=== PATIENT | female | born 1965 | race Caucasian/White ===

== ENCOUNTER 2017-04-08 15:10 | Emergency (ER) | payer BC ==
[2017-04-08 15:38] LABS: HEMATOCRIT 37.3 % (35.0-47.0); HEMOGLOBIN 12.2 gm/dl (11.6-16.0); MEAN CELL VOLUME 90.1 fl (81-97); MEAN CORPUSCULAR HEMOGLOBIN 29.5 pg (27-33); MEAN CORPUSCULAR HGB CONC 32.7 g/dl (32-36); MEAN PLATELET VOLUME 9.3 fl (7.4-10.4); PLATELET COUNT 722 K/uL (130-400); RED BLOOD COUNT 4.14 M/uL (3.80-5.40); RED CELL DISTRIBUTION WIDTH 13.6 % (11.5-14.5)
[2017-04-08 15:43] LABS: WHITE BLOOD COUNT W/O DIFF 20.5 K/uL (4.2-12.2)
--- NOTE | 2017-04-08 15:44 | Emergency Department Record ---
History of Present Illness - General Chief Complaint: Tremor Stated Complaint: CHANGE IN [facility] Source: Patient Mode of Arrival: Wheelchair Limitations: No limitations - History of Present Illness Initial comments: 51 yo female presents for evaluation of confusion following a change in her diabetic medications. Patient denies recent illness, fevers, chills, or cough symptoms. Patient does report generalized weakness symptoms. Patient's sister brought her to the ED for evaluation. Onset/Timin -: Week(s) Improves with: None Worsens with: None Associated Symptoms: Denies other symptoms - Linnea Coma Scale Eye Response: (4) Open spontaneously Motor Response: (6) Obeys commands Verbal Response: (5) Oriented Linnea Total: 15 - Related Data Home Medications Medication Instructions Recorded Confirmed Last Taken Amlodipine Besylate [Amlodipine 2.5 mg PO DAILY 04/22/15 04/08/17 03/25/17 Besylate] Atenolol [Atenolol] 50 mg PO DAILY 04/22/15 04/22/15 03/25/17 Atorvastatin Calcium 10 mg PO DAILY 04/22/15 04/22/15 03/25/17 Bupropion HCl [Bupropion HCl Sr] 100 tab PO BID 04/22/15 04/22/15 03/25/17 Butalb/Acetaminophen/Caffeine 1 tab PO Q6H PRN 04/22/15 04/22/15 03/25/17 [Ylkpri-Fbrznevt-Apmi 50-325-40] Citalopram Hydrobromide 20 tab PO DAILY 04/22/15 04/22/15 03/25/17 [Citalopram HBr] Gabapentin [Gabapentin] 100 cap PO TID 04/22/15 04/22/15 03/25/17 Lisinopril [Zestril] 20 mg PO DAILY 04/22/15 04/22/15 03/25/17 Metformin HCl [Glucophage Ir] 04/22/15 04/22/15 03/25/17 Allergies Allergy/AdvReac Type Severity Reaction Status Date / Time No Known Drug Allergies Allergy Verified 04/08/17 15:18 Travel Screening - Travel/Exposure Within Last 30 Days Have you traveled within the last 30 days?: No - Travel/Exposure Within Last Year Have you traveled outside the [place] in the last year?: No - Additonal Travel Details Have you been exposed to anyone with a communicable illness?: No - Travel Symptoms Symptom Screening: None Review of Systems Constitutional: Denies: Chills, Fever, Malaise, Night sweats Eyes: Denies: Eye discharge, Eye pain ENT: Denies: Congestion, Ear pain, Epistaxis Respiratory: Denies: Cough, Dyspnea Cardiovascular: Denies: Chest pain, Dyspnea on exertion Endocrine: Denies: Fatigue, Heat or cold intolerance Gastrointestinal: Denies: Abdominal pain, Vomiting Genitourinary: Denies: Incontinence, Retention Musculoskeletal: Denies: Arthralgia, Back pain Skin: Denies: Bruising, Change in color Neurological: Reports: Confusion. Denies: Abnormal gait, Headache, Seizure Psychiatric: Denies: Anxiety Hematological/Lymphatic: Denies: Anemia, Blood Clots Past Medical History - SOCIAL HISTORY Smoking Status: Former smoker Alcohol Use: Rare Drug Use: None - RESPIRATORY Hx Respiratory Disorders: Yes Hx Asthma: Yes Hx Pneumonia: Yes Hx Sleep Apnea: Yes - CARDIOVASCULAR Hx Cardio Disorders: Yes Hx Hypertension: Yes Comment:: high cholesterol - NEURO Hx Neuro Disorders: Yes Hx Headaches: Yes - GI Hx GI Disorders: No - Hx Genitourinary Disorders: No - ENDOCRINE Hx Endocrine Disorders: Yes Hx Diabetes: Yes - MUSCULOSKELETAL Hx Musculoskeletal Disorders: No - PSYCH Hx Psych Problems: Yes Hx Depression: Yes - HEMATOLOGY/ONCOLOGY Hx Hematology/Oncology Disorders: No Family Medical History Any Significant Family History?: Yes Hx Cancer: Grandparents Hx Diabetes: Father Hx Heart Disease: Grandparents Hx HTN: Father, Mother Physical Exam - General General Appearance: Alert, Oriented x3, Cooperative Limitations: No limitations - Head Head exam: Atraumatic, Normocephalic, Normal inspection Head exam detail: negative: Abrasion, Contusion, Saez's sign, General tenderness, Hematoma, Laceration - Eye Eye exam: Normal appearance. negative: Conjunctival injection, Periorbital swelling, Periorbital tenderness, Scleral icterus - ENT ENT exam: Mucous membranes dry Ear exam: negative: Auricular hematoma, Auricular trauma Nasal Exam: negative: Active bleeding, Discharge, Dried blood, Foreign body Mouth exam: negative: Drooling, Laceration, Muffled voice, Tongue elevation - Neck Neck exam: Normal inspection. negative: Meningismus, Tenderness - Respiratory Respiratory exam: Normal lung sounds bilaterally, Respiratory distress, Other ( tachypnic on examination). negative: Rales, Rhonchi, Stridor - Cardiovascular Cardiovascular Exam: Normal rhythm, Normal heart sounds, Tachycardia - GI/Abdominal GI/Abdominal exam: Soft. negative: Rebound, Rigid, Tenderness - Rectal Rectal exam: Deferred - exam: Deferred - Extremities Extremities exam: negative: Calf tenderness, Pedal edema, Tenderness - Back Back exam: Denies: CVA tenderness (R), CVA tenderness (L) - Neurological Neurological exam: Alert, Oriented X3. negative: Motor sensory deficit - Psychiatric Psychiatric exam: Normal affect, Normal mood - Skin Skin exam: Normal color. negative: Abrasion Type of lesion: negative: abrasion Course Vital Signs 04/08/17 15:32 Temperature 98.9 F Pulse Rate 123 H Blood Pressure 151/95 - Reevaluation(s) Reevaluation #1: 04/08/17 16:13 Labs reviewed: WBC 20.5 Na-118 CO2-18 Glucose 1000 Lactic acid: 5.3 Ketones: negative. Labs reviewed, 1 L bolus is infusing, will initiate 2nd Liter via second line and transfer to ICU. Reevaluation #2: 04/08/17 16:20 [facility] 1-call contacted for ICU transfer. Patient and family updated on all results and the plan of care at this time. Reevaluation #3: 04/08/17 16:27 Case was discussed with Dr. Stewart, will accept transfer to ICU. Will continue IVF resuscitation and hold Insulin at this time. Reevaluation #4: 04/08/17 17:34 3rd Liter NS ordered to continue IVF resusitation. Awaiting ICU bed assignment from [facility]. Pulse improved to 114, RR down to 20. Will continue to monitor. 04/08/17 17:35 Reevaluation #5: 04/08/17 17:50 4th Liter NS initiated in ED. Bed has been assigned, EMS contacted for transport. Repeat BMP ordered to re-evaluate the patient's electrolyte status. 04/08/17 18:04 Rocephin ordered for probable UTI. Repeat BMP reviewed, Glucose improved to 694 from 1000, Na improved from 118 to 125, CO2 improved to 21 from 18. Labs overall are improved from initial laboratory results. Awaiting transfer. 04/09/17 06:59 Medical Decision Making - Lab Data Result diagrams: 04/08/17 15:30 04/08/17 18:57 Critical Care Time Critical Care Time: Yes Total Critical Care Time: 120 Critical Care Time: Diagnosis and treatment of hyperosmolar, hyperglycemic state, multiple electrolyte abnormalities, IVCF resuscitation, administration of antibiotics for UTI, redraw of electrolytes for reassessment following 4 L NS, and arrangement for transfer to ICU for further management. Disposition Disposition: Transfer Clinical Impression: Hyperglycemic hyperosmolar nonketotic coma, Lactic acidosis Disposition: Acute Care Hospital Transfer Transfer To: [facility] Reason For Transfer: ICU Accepting Physician: Pat Time Discussed w/Accepting Physician: 16:18 Condition: (3) Guarded Forms: Patient Portal Access Time of Disposition: 16:20
[2017-04-08] MEDS ORDERED: 0.9 % SODIUM CHLORIDE 1000ML 1,000 ML IV SCH ×4 (15:45→18:00)
[2017-04-08 15:48] LABS: PLATELET ESTIMATE NORMAL (NORMAL)
[2017-04-08 15:52] LABS: LACTIC ACID 5.3 mmol/L (0.7-2.1)
[2017-04-08 16:06] LABS: BLOOD UREA NITROGEN 15 mg/dL (7-17); CREATININE 0.8 mg/dL (0.52-1.04); EST GLOMERULAR FILTRATION RATE > 60 ml/min; GLUCOSE,RANDOM 1000 mg/dL (70-110)
[2017-04-08 16:07] LABS: ALB/GLOB RATIO 0.8 (1.1-1.8); ALBUMIN 3.1 gm/dL (3.5-5.0); TOTAL PROTEIN 6.8 gm/dL (6.3-8.2)
[2017-04-08 16:08] LABS: ALKALINE PHOSPHATASE 192 U/L (38-126); ALT/SGPT 33 U/L (9-52); AST/SGOT 21 U/L (14-36)
[2017-04-08 17:56] LABS: URINE APPEARANCE SL CLOUDY; URINE BILIRUBIN NEGATIVE (NEGATIVE); URINE BLOOD MODERATE (NEGATIVE); URINE COLOR YELLOW; URINE KETONE NEGATIVE (NEGATIVE); URINE LEUKOCYTE ESTERASE SMALL (NEGATIVE); URINE NITRITE NEGATIVE (NEGATIVE); URINE PROTEIN NEGATIVE (NEGATIVE)
[2017-04-08 18:02] LABS: URINE GLUCOSE (UA) >=1000 mg/dL (NEGATIVE)
[2017-04-08 18:03] LABS: URINE BACTERIA 1+; URINE EPITHELIAL CELLS NONE SEEN (FEW)
[2017-04-08] MEDS ORDERED: CEFTRIAXONE SODIUM 1 GM in 0.9 % SODIUM CHLORIDE 100ML 100 ML IVPB ONE (19:03)
[2017-04-08 19:15] LABS: ANION GAP 9.6 (7-16); BLOOD UREA NITROGEN 14 mg/dL (7-17); CARBON DIOXIDE 21.4 mmol/L (22-30); CREATININE 0.7 mg/dL (0.52-1.04); EST GLOMERULAR FILTRATION RATE > 60 ml/min
[2017-04-08 19:23] LABS: GLUCOSE,RANDOM 694 mg/dL (70-110)
--- NOTE | 2017-04-10 14:17 | RADIOLOGY REPORT ---
DATE: 04/08/2017 at 16:05. EXAM: CHEST, TWO VIEWS. HISTORY: Not feeling well. Shakiness. TECHNIQUE: Upright AP and lateral views of the chest. COMPARISON: Two-view chest radiographic examination dated 04/22/2015. FINDINGS: The heart is not enlarged and the pulmonary vasculature is nondilated. No confluent air space opacity is seen; nor is there costophrenic angle blunting or pneumothorax. On the lateral view, there is possible linear scarring at the hilar level versus normal vasculature. This is stable. There are degenerative endplate changes scattered within the visualized spine. IMPRESSION: NO RADIOGRAPHIC EVIDENCE OF ACUTE CARDIOPULMONARY DISEASE. JOB NUMBER: [id number] MTDD
== END 2017-04-08 19:16 | disposition short-term general hospital (02) ==
LOC: ER 15:10
DX: E11.01 Type 2 diabetes mellitus with hyperosmolarity with coma (principal); R41.0 Disorientation, unspecified; R06.00 Dyspnea, unspecified; R82.99 Other abnormal findings in urine; I10 Essential (primary) hypertension; Z87.891 Personal history of nicotine dependence; Z79.84 Long term (current) use of oral hypoglycemic drugs
CPT/HCPCS: 36416; 71020; 80048; 80053; 81001; 82009; 82800; 82948; 83605; 83690; 85027; 96361; 96374; 99291; 99292; J7030

== ENCOUNTER 2018-01-24 07:56 | Day surgery (SDC) | payer BC ==
[2018-01-24] MEDS ORDERED: LIDOCAINE 2% MDV (20MG/ML) 20ML VIAL IV ONE (07:57)
[2018-01-24] MEDS ORDERED: PROPOFOL 10 MG/ML VIAL IV ONE (07:57)
--- NOTE | 2018-01-24 13:50 | Operative Note ---
DATE OF SURGERY: 01/24/2018 OPERATION: 1. Failed COLONOSCOPY due to poor colon preparation. 2. FLEXIBLE SIGMOIDOSCOPY with electrocautery snare polypectomy. INDICATION: Colorectal cancer screening. ANESTHESIA: Intravenous sedation was administered by the department of anesthesiology and included Diprivan titrated to effect. PROCEDURE: Following informed consent from this alert individual including a discussion of the risks and benefits of the procedure and an opportunity for the patient to ask questions, the patient was in the left lateral decubitus position. A digital rectal examination was performed. No abnormalities were noted. Following this, the Olympus [id number] video colonoscope was inserted into the rectum without resistance. The rectal mucosa had a normal appearance with normal-appearing mucosa; however, there was some retained stool noted. Washing and suctioning was employed vigorously with failed visualization. The colonoscope was then advanced farther up into the sigmoid colon where diverticulosis was rather extensive. There was also a fair amount of retained liquid and solid stool noted precluding advancement further into the colon. For this reason, the colonoscope was then slowly withdrawn. Within the distal rectum, there was a polyp noted measuring 7-8 mm in size. It appeared adenomatous in type and was friable. It was removed with electrocautery snare polypectomy with a white eschar noted and no bleeding. Retroflexion in the rectum was unremarkable except for retained stool. The endoscope was then withdrawn. The patient tolerated the procedure well and was returned to the recovery area in stable condition. IMPRESSION: 1. Failed colonoscopy secondary to poor colon preparation with retained liquid and solid stool. 2. Sigmoid diverticulosis. 3. A 7-8 mm rectal polyp removed with electrocautery snare polypectomy. RECOMMENDATIONS: The patient was advised to have a repeat attempt at colonoscopy with additional prep (2-day prep). Further recommendations will be forthcoming pending pathology as well. Followup will also be with Dr. Gonzales. As always, thank you for allowing me to participate in the care of your patient. CC: CARMEN GONZALES MD, FACP [facility]
== END 2018-01-24 10:24 | disposition home or self-care (01) ==
LOC: HOP 07:56
PROVIDERS: ATTEND Internal Medicine Gastroenterology
DX: Z12.11 Encounter for screening for malignant neoplasm of colon (principal); Z53.09 Procedure and treatment not carried out because of other contraindication; K62.1 Rectal polyp; K57.30 Diverticulosis of large intestine without perforation or abscess without bleeding; E11.9 Type 2 diabetes mellitus without complications; Z79.4 Long term (current) use of insulin; I10 Essential (primary) hypertension; E78.00 Pure hypercholesterolemia, unspecified; G62.9 Polyneuropathy, unspecified

== ENCOUNTER 2018-03-21 07:57 | Day surgery (SDC) | payer BC ==
[2018-03-21] MEDS ORDERED: PROPOFOL 10 MG/ML VIAL IV ONE (07:58)
[2018-03-21] MEDS ORDERED: LIDOCAINE 2% MDV (20MG/ML) 20ML VIAL IV ONE (07:58)
--- NOTE | 2018-03-21 13:20 | Operative Note ---
DATE OF SURGERY: 03/21/2018 OPERATION: COLONOSCOPY to the cecum with electrocautery snare polypectomy of a rectal polyp and partial polypectomy of an ileocecal valve polyp. ANESTHESIA: Intravenous sedation was administered by the department of anesthesiology and included Diprivan titrated to effect. HISTORY: The patient is a pleasant 52-year-old female who presented earlier this year (2 months ago) for colonoscopy. Unfortunately, at that time her colon preparation was not adequate. For this reason she returns for a repeat examination after a 2-day preparation and citrate of magnesium. PROCEDURE: Following informed consent from this alert individual including a discussion of the risks and benefits of the procedure and an opportunity for the patient to ask questions, the patient was in the left lateral decubitus position. A digital rectal examination was performed. No abnormalities were noted. Following this, the Olympus [id number] video colonoscope was inserted into the rectum without resistance. The distal rectum had a normal appearance with normal folds and distensibility. In the mid rectum, there was a large 2 to 2.5 cm polyp noted which was initially traversed. The colonoscope was then further advanced up through the bowel to the level of the cecum. Extensive diverticulosis was noted in the left colon. The colon preparation was fair. Washing and suctioning was employed vigorously throughout to facilitate improved visualization although there remained some retained stool noted. The cecum was defined by noting the appendiceal orifice, cecal base, and ileocecal valve. There was a small 6-7 mm polyp noted at the cecal base which was not removed. There was a large 3 cm polyp along the ileocecal valve. Initially tried to remove the polyp with electrocautery snare polypectomy; however, due to its size and location, complete removal safely did not seem feasible. From this point, the colonoscope was then withdrawn. No additional changes were appreciated except for a small lipoma in the ascending colon. Again extensive diverticulosis was noted in the left colon. When the rectum was reached, the polyp was re-visualized and snared in the usual fashion. Utilizing electrocautery snare, the polyp was removed. It was semi-pedunculated with a narrowed base. A white eschar was noted. There was no bleeding. Retroflexion in the rectum was endoscopically unremarkable. The polyp was collected on the tip of the colonoscope and placed in the specimen trap. The patient tolerated the procedure well and was returned to the recovery area in stable condition. IMPRESSION: 1. Large 3 cm sessile polyp involving ileocecal valve which was only partially removed at this time. 2. A 7 mm semi-pedunculated polyp at the base of the cecum which was not removed. 3. Large 2 to 2.5 cm mid rectal polyp removed with electrocautery snare polypectomy. 4. Extensive left colonic diverticulosis. 5. Fair preparation. RECOMMENDATIONS: At this point, I will consult Surgery for resection of the above-mentioned polyp at the ileocecal valve. Would also recommend a recheck colonoscopy with 2-day prep in 1 year's time for surveillance. Followup will also be with Dr. Gonzales. Further recommendations may be forthcoming pending those results. As always, thank you for allowing me to participate in the care of your patient. CC: CARMEN GONZALES MD, FACP Anjel Crain, DO [facility]
== END 2018-03-21 10:15 | disposition home or self-care (01) ==
LOC: HOP 07:57
PROVIDERS: ATTEND Internal Medicine Gastroenterology
DX: Z12.11 Encounter for screening for malignant neoplasm of colon (principal); D12.0 Benign neoplasm of cecum; D12.8 Benign neoplasm of rectum; K57.30 Diverticulosis of large intestine without perforation or abscess without bleeding; E11.9 Type 2 diabetes mellitus without complications; Z79.4 Long term (current) use of insulin; I10 Essential (primary) hypertension; G62.9 Polyneuropathy, unspecified; E78.00 Pure hypercholesterolemia, unspecified

== ENCOUNTER 2018-10-21 09:11 | Emergency (ER) | payer SELFPAY ==
[2018-10-21] MEDS ORDERED: 0.9 % SODIUM CHLORIDE 1,000 ML BAG IV ONE ×2 (09:40→09:51)
--- NOTE | 2018-10-21 09:40 | Emergency Department Record ---
History of Present Illness - General Chief complaint: Pain Stated complaint: PAIN IN RIGHT BUTT CHEEK Time Seen by Provider: 10/21/18 09:14 Source: Patient Mode of Arrival: Ambulatory - History of Present Illness Initial comments: The patient states that she has developed right buttock pain which improved slightly after icing it yesterday. This morning she woke up and was sweaty, soaking her pillow, but she has had no known fevers. Her last BM was yesterday, and her BM's do not cause pain or discomfort to her. In 2014 she had a hysterectomy which was complicated by an infection in this same area which required a drain for several days. She arrived here with a temp of 99, and a pulse of 116. she denies other symptoms such as doyle, stiff neck, cough, chest pain, abdominal pain, rashes, dysuria. She has no known allergies and has normal kidney function according to her. Onset/Timin -: Days(s) Location: Right, Other History of Same: No Radiation: None Severity scale (1-10): 5 Quality: Dull, Other Consistency: Constant Improves with: Nothing Worsens with: Palpation Associated Symptoms: Denies other symptoms - Related Data Allergies Allergy/AdvReac Type Severity Reaction Status Date / Time No Known Drug Allergies Allergy Verified 04/08/17 15:18 Travel Screening - Travel/Exposure Within Last 30 Days Have you traveled within the last 30 days?: No Review of Systems Reviewed: No additional complaints except as noted below Constitutional: Reports: As per HPI. Denies: Chills, Fever, Malaise, Night sweats, Weakness, Weight change Eyes: Reports: As per HPI. Denies: Eye discharge, Eye pain, Photophobia, Vision change ENT: Reports: As per HPI. Denies: Congestion, Dental pain, Ear pain, Epistaxis , Hearing loss, Throat pain Respiratory: Reports: As per HPI. Denies: Cough, Dyspnea, Hemoptysis, Stridor, Wheezes Cardiovascular: Reports: As per HPI. Denies: Arrhythmia, Chest pain, Dyspnea on exertion, Edema, Murmurs, Orthopnea, Palpitations, Paroxysmal nocturnal dyspnea, Rheumatic Fever, Syncope Endocrine: Reports: As per HPI. Denies: Fatigue, Heat or cold intolerance, Polydipsia, Polyuria Gastrointestinal: Reports: As per HPI. Denies: Abdominal pain, Constipation, Diarrhea, Hematemesis, Hematochezia, Melena, Nausea, Vomiting Genitourinary: Reports: As per HPI. Denies: Abnormal menses, Discharge, Dyspareunia, Dysuria, Frequency, Hematuria, Incontinence, Retention, Urgency Musculoskeletal: Reports: As per HPI. Denies: Arthralgia, Back pain, Gout, Joint swelling, Myalgia, Neck pain Skin: Reports: As per HPI. Denies: Bruising, Change in color, Change in hair/ nails, Lesions, Pruritus, Rash Neurological: Reports: As per HPI. Denies: Abnormal gait, Confusion, Headache, Numbness, Paresthesias, Seizure, Tingling, Tremors, Vertigo, Weakness Psychiatric: Reports: As per HPI. Denies: Anxiety, Auditory hallucinations, Depression, Homicidal thoughts, Suicidal thoughts, Visual hallucinations Hematological/Lymphatic: Reports: As per HPI. Denies: Anemia, Blood Clots, Easy bleeding, Easy bruising, Swollen glands Past Medical History - SOCIAL HISTORY Smoking Status: Former smoker - RESPIRATORY Hx Respiratory Disorders: Yes Hx Asthma: Yes - CARDIOVASCULAR Hx Cardio Disorders: Yes Hx Hypertension: Yes Hx Irregular Heartbeat: Yes (was told once before) Comment:: high cholesterol - NEURO Hx Neuro Disorders: Yes Hx Headaches: Yes - GI Hx GI Disorders: No - Hx Genitourinary Disorders: No - ENDOCRINE Hx Endocrine Disorders: Yes Hx Diabetes: Yes - MUSCULOSKELETAL Hx Musculoskeletal Disorders: No Hx Arthritis: Yes (bilateral arms, no problems for over 10 years) - PSYCH Hx Psych Problems: Yes Hx Depression: Yes Comment:: stressful times currently - HEMATOLOGY/ONCOLOGY Hx Hematology/Oncology Disorders: No Hx Anemia: Yes (2013 iron treatment) Family Medical History Any Significant Family History?: Yes Hx Cancer: Grandparents *Cancer Comment: grandmother-colon cancer Hx Diabetes: Father Hx Heart Disease: Grandparents Hx HTN: Father, Mother Physical Exam - General General Appearance: Alert, Oriented x3, Cooperative, No acute distress - Head Head exam: Normal inspection - Eye Eye exam: Normal appearance, PERRL, EOMI. negative: Conjunctival injection, Nystagmus Pupils: Normal accommodation - ENT ENT exam: Normal exam, Mucous membranes moist, Normal external ear exam, Normal orophraynx, TM's normal bilaterally Ear exam: Normal external inspection. negative: External canal tenderness Nasal Exam: Normal inspection. negative: Discharge, Sinus tenderness Mouth exam: Normal external inspection, Tongue normal Teeth exam: Normal inspection. negative: Dental caries Throat exam: Normal inspection. negative: Tonsillar erythema, Tonsillar exudate - Neck Neck exam: Normal inspection, Full ROM. negative: Lymphadenopathy, Meningismus , Tenderness - Respiratory Respiratory exam: Normal lung sounds bilaterally. negative: Respiratory distress - Cardiovascular Cardiovascular Exam: Normal rhythm, Normal heart sounds, Tachycardia (116/minute ) - GI/Abdominal GI/Abdominal exam: Soft, Normal bowel sounds. negative: Tenderness - Rectal Rectal exam: Deferred, Tenderness (Right buttock, lateral to lower sacrum with tenderness, induration, warmth and trace of erythema about the size of a large grapefruit or melon, no pointing or fluctuance. ) - exam: Other (Exam of perineum reveals the tender mass is palpable to mid- perineum beside rectum, and not involving the vaginal or anterior perineum on exam.) - Extremities Extremities exam: Normal inspection, Full ROM, Normal capillary refill. negative: Tenderness - Back Back exam: Reports: Normal inspection, Full ROM. Denies: Muscle spasm, Rash noted, Tenderness - Neurological Neurological exam: Alert, CN II-XII intact, Normal gait, Oriented X3, Reflexes normal - Psychiatric Psychiatric exam: Normal affect, Normal mood - Skin Skin exam: Dry, Intact, Normal color, Warm Course Vital Signs 10/21/18 09:20 Temperature 99.0 F Pulse Rate [ 116 H Pulse Ox Probe] Respiratory 22 Rate Blood Pressure 133/68 [Left Arm] Pulse Ox 98 - Reevaluation(s) Reevaluation #1: 10/21/18 10:18 Patient vomited after drinking oral contrast. Zofran ordered. Reevaluation #2: DW Dr. Crain who requests transfer to [facility] EDept. Spoke with Dr. Chey Olivarez emergency department attending at [facility] who accepts patient in transfer ED to ED. 10/21/18 11:44 10/21/18 11:47 Reevaluation #3: 10/21/18 11:52 Patient aware of results of studies, treatment plan and transfer plans. She is in agreement. She has sen Dr. Crain in the past and is agreeable to his medical and surgical care. Medical Decision Making - Management Options MDM Management: Additional Work-up Planned (e.g. ADM/Transfer/OP Study) ( Transfer to [facility] Emergency to Dr. Gonzalez and Dr. Crain) - Data Complexity MDM Data: Labs Ordered and/or Reviewed, X-Ray Ordered and/or Reviewed - Lab Data Result diagrams: 10/21/18 09:45 10/21/18 09:45 Disposition Disposition: Transfer Clinical Impression: Abscess of deep perineal space Disposition: Acute Care Hospital Transfer Transfer To: [facility] Emergency Department Reason For Transfer: Surgeon Request Accepting Physician: Dr. Crain Surgeon/ Dr. Olivarez emergency department Time Discussed w/Accepting Physician: 11:51 Condition: (3) Guarded Quality - Quality Measures Quality Measures: N/A - Blood Pressure Screening Does Patient Have Any of the Following: No, Active Dx of HTN Blood Pressure Classification: Pre-Hypertensive BP Reading Systolic Measurement: 133 Diastolic Measurement: 68 Screening for High Blood Pressure: Patient Exclusion, Hx of HTN [[id number]]
[2018-10-21] MEDS ORDERED: PIPERACILLIN SODIUM/TAZOBACTAM 4.5 GM in 0.9 % SODIUM CHLORIDE 100ML 100 ML IVPB ONE (09:45)
[2018-10-21 09:57] LABS: HEMATOCRIT 37.6 % (35.0-47.0); HEMOGLOBIN 11.8 gm/dl (11.6-16.0); MEAN CELL VOLUME 89.3 fl (81-97); MEAN CORPUSCULAR HGB CONC 31.4 g/dl (32-36); MEAN PLATELET VOLUME 8.6 fl (7.4-10.4); PLATELET COUNT 556 K/uL (130-400); RED BLOOD COUNT 4.21 M/uL (3.80-5.40); RED CELL DISTRIBUTION WIDTH 14.7 % (11.5-14.5); WHITE BLOOD COUNT W/O DIFF 18.6 K/uL (4.2-12.2)
[2018-10-21 10:06] LABS: PLATELET ESTIMATE INCREASED (NORMAL)
[2018-10-21] MEDS ORDERED: ONDANSETRON HCL IV 4 MG/2 ML VIAL IVP ONE (10:18)
[2018-10-21 10:28] LABS: ALB/GLOB RATIO 0.8 (1.1-1.8); ALBUMIN 3.4 g/dL (4.0-5.0); ALKALINE PHOSPHATASE 113 U/L (45-87); ALT/SGPT 13 U/L (<33); AST/SGOT 10 U/L (10.0-35.0); BLOOD UREA NITROGEN 15 mg/dL (6-20); CREATININE 0.8 mg/dL (0.5-0.9); EST GLOMERULAR FILTRATION RATE > 60 mL/min; GLUCOSE,RANDOM 149 mg/dL (74-109); TOTAL PROTEIN 7.5 g/dL (6.6-8.7)
--- NOTE | 2018-10-22 21:06 | CT SCAN REPORT ---
EXAM: CT SCAN ABDOMEN/PELVIS W CONTRAST HISTORY: LUMP IN BUTTOCKS. TECHNIQUE: Sequential axial images were obtained from the diaphragms through the ischiorectal fossa after intravenous administration of 100 mL of Omnipaque- 300 contrast material. FINDINGS: The visualized lung bases appear normal. The liver appears homogeneous. No gallstones or ductal dilatation. The pancreas and spleen appear normal. There is a focal outpouching of the proximal posterior stomach with surgical clips. This may represent previous surgery. 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 No obstructive uropathy. The small bowel appears normal. There is colonic diverticulosis without evidence of diverticulitis. There is a complex septated cystic mass in the right perirectal region measuring 8.0 x 8.9 cm. There is surrounding inflammatory change. The etiology of this is uncertain. Surgical consultation is recommended. There appears to be a fat plane between this lesion and the rectum. The urinary bladder appears normal. The uterus is surgically absent. There is a large fat- containing ventral wall hernia. The osseous structures are grossly unremarkable. IMPRESSION: 1. COMPLEX SEPTATED CYSTIC MASS IN THE RIGHT PERIRECTAL REGION MEASURING 8.0 X 8.9 CM. THERE APPEARS TO BE A DISTINCT FAT PLANE BETWEEN THIS LESION AND THE RECTUM. THE ETIOLOGY OF THIS IS UNCERTAIN. SURGICAL CONSULTATION IS RECOMMENDED. 2. COLONIC DIVERTICULOSIS WITHOUT EVIDENCE OF DIVERTICULITIS. 3. LARGE FAT-CONTAINING VENTRAL WALL HERNIA. 4. POST-OP SURGICAL CLIPS RIGHT LOWER QUADRANT. 5. HORSESHOE KIDNEY WITH LOBULATED RENAL CONTOURS. 6. FOCAL OUTPOUCHING OF THE PROXIMAL STOMACH WITH ADJACENT SURGICAL CLIPS. CORRELATION WITH PATIENT'S PREVIOUS SURGICAL HISTORY IS RECOMMENDED. JOB NUMBER: [id number] [facility]
== END 2018-10-21 12:25 | disposition short-term general hospital (02) ==
LOC: ER 09:11
DX: L02.215 Cutaneous abscess of perineum (principal); K57.90 Diverticulosis of intestine, part unspecified, without perforation or abscess without bleeding; R11.11 Vomiting without nausea; E11.9 Type 2 diabetes mellitus without complications; I10 Essential (primary) hypertension; Z87.891 Personal history of nicotine dependence; Z79.4 Long term (current) use of insulin
CPT/HCPCS: 99285 ×2; 96365; 96375; 83605; 80053; 85027; 74177; Q9967; J2405; J2543

== ENCOUNTER 2019-05-15 10:22 | Day surgery (SDC) | payer BC ==
[2019-05-15] MEDS ORDERED: PROPOFOL 10 MG/ML VIAL IV ONE (10:23)
[2019-05-15] MEDS ORDERED: LIDOCAINE 2% MDV (20MG/ML) 20ML VIAL IV ONE (10:23)
--- NOTE | 2019-05-16 08:31 | Operative Note ---
OPERATION: COLONOSCOPY to the cecum with electrocautery snare polypectomy. INDICATION: History of adenomatous polyps. Patient had 2 large polyps in the cecal region which were removed surgically by Dr. Crain approximately 1 year ago. At that time, a partial right hemicolectomy was completed. She returns at this time for surveillance, as her preparations were fair in the past. ANESTHESIA: Intravenous sedation was administered by the department of anesthesiology and included Diprivan titrated to effect. PROCEDURE: Following informed consent from this alert individual including a discussion of the risks and benefits of the procedure and an opportunity for the patient to ask questions, the patient was in the left lateral decubitus position. A digital rectal examination was performed. No abnormalities were noted. Following this, the Olympus [id number] video colonoscope was inserted into the rectum without resistance. The rectal mucosa had a normal appearance with normal folds and distensibility. There was a polyp noted on the distal valve of James which was initially traversed. The colonoscope was advanced up through the remainder of the bowel to the level of the small bowel anastomosis in the right colon. There was a fair amount of retained liquid and semi-solid stool noted, and washing and suctioning was employed vigorously for fair visualization. The anastomosis was well defined. From this point, the colonoscope was slowly withdrawn. Extensive diverticulosis was noted throughout the colon. The left colon was somewhat redundant. No polyps were seen until the rectum was reached. Again, on the distal valve of James there was a sessile 10 mm polyp noted which was removed in 2 parts with electrocautery snare polypectomy. The polyp site had a white eschar and was free from bleeding. Retroflexion in the rectum was endoscopically normal. The endoscope was straightened and withdrawn. The patient tolerated the procedure well and was returned to the recovery area in stable condition. IMPRESSION: 1. A 1 cm distal rectal polyp as described above on the distal valve of James removed with electrocautery snare polypectomy. 2. Extensive diverticulosis. 3. Status post right hemicolectomy. RECOMMENDATIONS: The patient was advised she should receive a copy of her pathology report at home in the next 2-3 weeks. If not, she was asked to call my office to review the results of testing today. Further recommendations may be forthcoming pending those results. Followup will also be with Dr. Gonzales. As always, thank you for allowing me to participate in the care of your patient. AIDEN
== END 2019-05-15 13:00 | disposition home or self-care (01) ==
LOC: HOP 10:22
PROVIDERS: ATTEND Internal Medicine Gastroenterology
DX: Z09 Encounter for follow-up examination after completed treatment for conditions other than malignant neoplasm (principal); Z86.010 Personal history of colon polyps; D12.8 Benign neoplasm of rectum; K57.30 Diverticulosis of large intestine without perforation or abscess without bleeding; E11.9 Type 2 diabetes mellitus without complications; I10 Essential (primary) hypertension; E78.00 Pure hypercholesterolemia, unspecified